=== PATIENT | female | born 1935 | race Caucasian/White ===

== ENCOUNTER 2021-03-16 03:00 | Inpatient (IN) | payer MEDICARE ==
[~2021-03-16] VITALS: Ht 162.6 cm; Wt 117.2 kg
[~2021-03-16 03:00] MED LIST: AMOX875 PO; ATEN25; ATEN25 PO; FAMO20 PO; LISI20 PO; LOSA25; Lisinopril2.5 MG; MAGCHL64ER; OMEPRAZOLE MAGN20 MG PO; OXYB5 PO; Omeprazole20 M1
[2021-03-16 03:21] LABS: BASOPHILS ABSOLUTE AUTO 0.03 K/mm3 (0.00-0.23); BASOPHILS PERCENT AUTO 0 % (0-2); EOSINOPHILS ABSOLUTE AUTO 0.15 K/mm3 (0.00-0.68); EOSINOPHILS PERCENT AUTO 2 % (0-6); Hematocrit 36.5 % (33.0-51.0); Hemoglobin 12.1 g/dL (11.5-16.0); IMMATURE GRAN ABSOLUTE AUTO 0.03 K/mm3 (0.00-0.10); IMMATURE GRAN PERCENT AUTO 0 % (0-1); LYMPHOCYTES ABSOLUTE AUTO 1.88 K/mm3 (0.84-5.20); LYMPHOCYTES PERCENT AUTO 27 % (21-46); MONOCYTES ABSOLUTE AUTO 0.56 K/mm3 (0.16-1.47); MONOCYTES PERCENT AUTO 8 % (4-13); Mean Corpuscular HGB Conc 33.2 g/dL (31.5-36.5); Mean Corpuscular Volume 91 fL (80-100); Mean Platelet Volume 8.9 fL (9.1-12.4); NEUTROPHILS ABSOLUTE AUTO 4.27 K/mm3 (1.96-9.15); NEUTROPHILS PERCENT AUTO 62 % (41-73); Platelet Count 280 K/mm3 (150-400); RDW Coefficient Variation 13.5 % (11.7-14.2); RDW Standard Deviation 44.8 fL (35.1-46.3); Red Blood Cell Count 4.03 M/mm3 (3.80-5.20); White Blood Cell Count 6.92 K/mm3 (4.00-11.30)
[2021-03-16 03:36] LABS: Prothrombin Time Results 10.5 Sec (9.7-11.5)
[2021-03-16 03:41] LABS: Albumin/Globulin Ratio 0.8 (0.8-1.8); Bilirubin, Total 0.4 mg/dL (0.1-1.0); Bun/Creatinine Ratio 19.6 (12.0-20.0); Calcium, Blood 9.6 mg/dL (8.5-10.1); Creatinine, Blood 1.02 mg/dL (0.40-1.00); Globulin, Blood 3.7 g/dL (2.2-4.0); Potassium, Blood 4.1 mmol/L (3.5-5.5); Total Protein, Blood 6.7 g/dL (6.4-8.2); Troponin I 0.38 ng/mL (0.000-0.040)
[2021-03-16 04:07] LABS: Influenza A, PCR NEGATIVE (NEGATIVE); Influenza B, PCR NEGATIVE (NEGATIVE); Resp Syncytial Virus, PCR NEGATIVE (NEGATIVE); SARS-Cov-2 (COVID-19) PCR, MMC NEGATIVE (NEGATIVE)
[2021-03-16 06:49] LABS: Source, Urine Catheter
[2021-03-16 06:57] LABS: Bilirubin, Urine Neg (Neg); Blood, Urine 2+ (Neg); Glucose Qualitative, Urine Neg (Neg); Ketones, Urine Neg (Neg); Leukocyte Esterase, Urine 3+ (Neg); Nitrite, Urine Pos (Neg); Protein, Urine 2+ (Neg); Specific Gravity, Urine 1.015 (1.003-1.022); Urobilinogen, Urine NORM (Normal)
--- NOTE | 2021-03-16 07:00 | NUR ---
PATIENT ARRIVED TO ICU FROM INSTALLMENT ACCOUNT CHECKER AT 0530, DOCTOR TASHI ARRIVING TO ROOM WITH PATIENT. STAT ECG DONE. VERBAL ORDER TO RESTART NITRO DRIP IF CHEST PAIN RETURNS. PATIENT DENYING CP ON ARRIVAL TO UNIT. FEMSTOP WITH GAUZE DRESSING TO RIGHT GROIN, CENTRAL LINE ALSO TO RIGHT GROIN, BRIGHT RED BLOOD OOZING FROM UNDER CENTRAL LINE DRESSING. DRESSING CHANGED AND UMESH DRESSING PLACED OVER SITE AND NEW CHG DRESSING PLACED OVER AREA. HOGAN CATH PLACED WITHOUT DIFFICULTY DRAINING HAZY YELLOW URINE UA SENT PER PROTOCOL. AT 0630 PATIENT VERBALIZED SHE WAS FEELING "UNCOMFORTABLE" WITH 8/10 TIGHTNESS AROUND CHEST AND UPPER GASTRIC AREA, NITRO DRIP STARTED SEE FLOW SHEET FOR TITRATION. FEMSTOP REMAINS IN PLACE WITH PRESSURE 95 NO OOZING SEEN AREA SOFT. RIGHT LEG LARGER THAN LEFT WITH DOPPLER PULSES NO CHANGE FROM ARRIVAL TO ICU.
[2021-03-16 07:15] LABS: Color, Urine Yellow (P-Yellow)
[2021-03-16 07:16] LABS: Appearance, Urine Hazy (Clear)
[2021-03-16 07:19] LABS: Hyaline Casts 0-2 /lpf (0-2)
[2021-03-16 07:22] LABS: Red Blood Cells, Urine 0-2 /hpf (0-2); White Blood Cells, Urine 50-100 /hpf (0-5)
[2021-03-16 07:23] LABS: Bacteria Many /hpf; Squamous Epithelial Cells Rare /hpf (Few)
[2021-03-16 07:53] LABS: BASOPHILS ABSOLUTE AUTO 0.03 K/mm3 (0.00-0.23); BASOPHILS PERCENT AUTO 0 % (0-2); EOSINOPHILS ABSOLUTE AUTO 0.06 K/mm3 (0.00-0.68); EOSINOPHILS PERCENT AUTO 1 % (0-6); Hematocrit 35.9 % (33.0-51.0); Hemoglobin 11.8 g/dL (11.5-16.0); IMMATURE GRAN ABSOLUTE AUTO 0.04 K/mm3 (0.00-0.10); IMMATURE GRAN PERCENT AUTO 1 % (0-1); LYMPHOCYTES ABSOLUTE AUTO 1.76 K/mm3 (0.84-5.20); LYMPHOCYTES PERCENT AUTO 21 % (21-46); MONOCYTES ABSOLUTE AUTO 0.47 K/mm3 (0.16-1.47); MONOCYTES PERCENT AUTO 6 % (4-13); Mean Corpuscular HGB 29.9 pg (26.0-34.0); Mean Corpuscular HGB Conc 32.9 g/dL (31.5-36.5); Mean Corpuscular Volume 91 fL (80-100); Mean Platelet Volume 9.2 fL (9.1-12.4); NEUTROPHILS ABSOLUTE AUTO 5.94 K/mm3 (1.96-9.15); NEUTROPHILS PERCENT AUTO 72 % (41-73); Platelet Count 301 K/mm3 (150-400); RDW Coefficient Variation 13.7 % (11.7-14.2); RDW Standard Deviation 45.1 fL (35.1-46.3); Red Blood Cell Count 3.94 M/mm3 (3.80-5.20)
[2021-03-16 07:59] LABS: Calcium, Blood 9.5 mg/dL (8.5-10.1); Potassium, Blood 4.5 mmol/L (3.5-5.5)
[2021-03-16 08:06] LABS: Troponin I 26.3 ng/mL (0.000-0.040)
--- NOTE | 2021-03-16 19:37 | NUR ---
SIGNIFICANT EVENTS: FEMSTOP REMAINED IN PLACE UNTIL APPROX 1530. AT THIS TIME DR. AKINS CAME TO BEDSIDE AND INJECTED LIDOCAINE W/EPI, REMOVED FEMSTOP. SITE STOPPED OOZING. PT NOW IS SITTING UP WITH NO FURTHER OOZING OR HEMATOMA AT SITE. AREA OF ECCYMOSIS IN ALEXYS AREA REMAINS. FEMORAL CENTRAL LINE REMOVED PER ORDER. NEURO: A&OX4. COMPLAINED OF PAIN AT RIGHT GROIN SITE TODAY RELATED TO PRESSURE FROM FEMSTOP. TREATED WITH PRN FENTANYL WHICH WAS EFFECTIVE. PT HAS HAD INTERMITTENT SHIVERS/CHILLS WHICH SHE STATES IS FROM NERVOUSNESS. PULM: 2L NC. LUNGS CLEAR. CARDIAC: A FIB 90S-100S. NITRO INFUSING TODAY FOR CHEST PAIN/PRESSURE, TITRATED TO 60MCG/MIN TODAY. SEE VITALS FOR BP TRENDS. PEDAL PULSES FOUND BY DOPPLER. GI/: HOGAN WITH CLOUDY UOP - DISCUSSED WITH DR. ELLIOTT. NO BM. PT HAD 2 EPISODES OF VOMITTING TODAY. DIET ORDERED THIS EVENING BUT PT DID NOT HAVE AN APPETITE.
--- NOTE | 2021-03-16 21:09 | NUR ---
PATIENT RESTING QUIETLY IN BED A&O X3, [place]. VERBALIZED PAIN IS "BETTER" YET VERBALIZED 10/10 PRESSURE TYPE PAIN WITH DEEP BREATH. PATIENT ASSISTED TO REPOSITION TO HER RIGHT SIDE, HYPOTENSIVE BP 86/50 MAP 65 NITRO DRIP TITRATED DOWN TO 55 MCG. AGGRASTAT STARTED AT 0.077 MCG/KG/MIN. RIGHT GROIN WITH DRESSING INTACT WITH SMALL AMT OF RED BLOOD CONTAINED IN DRESSING. LARGE BRUISING TO GROIN AND PUBIC AREA, BRUISING SOFT, NO HARD HEMATOMA FELT. DOPPLER PULSES TO BOTH FEET, RIGHT LEG LARGER THAN LEFT WHICH IS NOT NEW FOR PATIENT. DOCTOR AKINS GIVEN UPDATE AT 1945 TROP I TO BE DRAWN EARLY, AND TO TITRATE NITRO DRIP OFF AND START NITRO PASTE. DOCTOR AKINS NOTIFIED OF TROP I LEVEL OF 72.5 CONTINUE WITH PLAN TO DC NITRO DRIP AFTER NITRO PASTE STARTED. PATIENT NOW SLEEPING ON HER RIGHT SIDE, RIGHT GROIN WITH NO FURTHER OOZE SEEN AND AREA REMAINS SOFT.
--- NOTE | 2021-03-17 00:44 | NUR ---
PATIENT SLEEPING REPOSITIONING SELF IN BED FOR COMFORT. AWAKENS TO SLIGHT STIMULI. WHEN AWAKE CONTINUES TO C/O CHEST PRESSURE, NITRO DRIP OFF AND NITRO PASTE IN PLACE. RIGHT WRIST SITE SMALL BRUISING UNCHANGED FROM BEGINNING OF SHIFT. LEFT AC WITH LARGE BRUISE THAT ALSO REMAINS UNCHANGED. RIGHT GROIN SITE REMAINS SOFT WITH SMALL AMT OF OOZING CONTAINED IN DRESSING, AREA REMAINS SOFT WITH LARGE AMT OF BRUISING UNCHANGED.
[2021-03-17 05:19] LABS: BASOPHILS ABSOLUTE AUTO 0.02 K/mm3 (0.00-0.23); BASOPHILS PERCENT AUTO 0 % (0-2); EOSINOPHILS ABSOLUTE AUTO 0.01 K/mm3 (0.00-0.68); EOSINOPHILS PERCENT AUTO 0 % (0-6); Hematocrit 31.4 % (33.0-51.0); Hemoglobin 10.3 g/dL (11.5-16.0); IMMATURE GRAN ABSOLUTE AUTO 0.05 K/mm3 (0.00-0.10); IMMATURE GRAN PERCENT AUTO 1 % (0-1); LYMPHOCYTES ABSOLUTE AUTO 1.44 K/mm3 (0.84-5.20); LYMPHOCYTES PERCENT AUTO 13 % (21-46); MONOCYTES ABSOLUTE AUTO 1.24 K/mm3 (0.16-1.47); MONOCYTES PERCENT AUTO 12 % (4-13); Mean Corpuscular HGB 30.1 pg (26.0-34.0); Mean Corpuscular HGB Conc 32.8 g/dL (31.5-36.5); Mean Corpuscular Volume 92 fL (80-100); Mean Platelet Volume 9.1 fL (9.1-12.4); NEUTROPHILS ABSOLUTE AUTO 8.06 K/mm3 (1.96-9.15); NEUTROPHILS PERCENT AUTO 74 % (41-73); Platelet Count 255 K/mm3 (150-400); RDW Coefficient Variation 13.9 % (11.7-14.2); RDW Standard Deviation 46.1 fL (35.1-46.3); Red Blood Cell Count 3.42 M/mm3 (3.80-5.20); White Blood Cell Count 10.82 K/mm3 (4.00-11.30)
[2021-03-17 05:31] LABS: Anion Gap 6 mmol/L (6-16); Blood Urea Nitrogen 17 mg/dL (8-24); Bun/Creatinine Ratio 20.6 (12.0-20.0); CO2, Blood 25 mmol/L (21-32); Calcium, Blood 9.4 mg/dL (8.5-10.1); Chloride, Blood 108 mmol/L (98-108); Creatinine, Blood 0.83 mg/dL (0.40-1.00); Glomerular Filtration Rate >60 (60-); Glucose, Blood 124 mg/dL (70-99); Potassium, Blood 4.3 mmol/L (3.5-5.5); Sodium, Blood 139 mmol/L (136-145)
--- NOTE | 2021-03-17 07:00 | NUR ---
SUMMARY PATIENT HAVING INCREASED PAIN TO MID TO LEFT CHEST NIGHT PROGRESSED HAVING RELIEF OF PAIN WITH FENTANYL IV, SEE EMAR. AM EKG AND LABS COMPLETED AND DOCTOR TASHI NOTIFIED OF INCREASED PAIN AND GIVEN UPDATE. AGGRASTAT STOPPED AND HEPARIN DRIP PER PHARMACY ORDERED. NITRO PASTE REMOVED AND NITRO DRIP STARTED AT 20 MCG. RIGHT GROIN SITE REMAINS SOFT BRUISING HAS BEEN UNCHANGED T/O NIGHT, SMALL AMT OF OOZING SEEN CONTAINED IN NEW DRESSING. RIGHT WRIST SITE REMAINS SOFT NO CHANGES TO BRUISING.
[2021-03-17 07:39] LABS: International Normalized Ratio 1.07; Prothrombin Time Results 11.2 Sec (9.7-11.5)
--- NOTE | 2021-03-17 08:00 | NUR ---
ASSUMED CARE REPORT FROM ABDULAZIZ CAMPBELL AT 0700. PT RESTING IN BED. A&OX 3. PT C/O LEFT SIDED CHEST PAIN, STATES PAIN 10/10, ACHING, PRESSURE. PT REPORTS NO RELIEF FROM FENTANYL OR NITRO. APPEARS TO BE SLEEPING WHEN UNDISTURBED. NITRO GTT FOR CP, 30 MCG/HR. HEPARIN STARTED, AGGRASTAT ON STANDBY. AFIB, RATE 100-110. BP STABLE. LUNGS CLEAR, 2L VIA NC. PT REPORTS INCREASED PAIN c INSPIRATION. RIGHT GROIN ACCESS SITE SOFT, NON TENDER. ECCHYMOSIS NOTED, RIGHT RADIAL WNL, DRESSING C/D/I. HOGAN PATENT, DRAINING CLEAR YELLOW URINE TO GRAVITY. 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 WILL CONTINUE TO MONITOR.
--- NOTE | 2021-03-17 14:28 | NUR ---
RETURN TO ICU PT ARRIVES TO ICU FROM FILENET DEVELOPER AT 1415. 2 STENTS PLACED TO LAD, 2 COILS. 2 TR BANDS TO RIGHT RADIAL. 20 ML IN EACH. HAND COOL, GOOD O2 WAVE FORM TO RIGHT HAND. ARM BOARD PLACED. NO HEMATOMA NOTED. AGGRASTAT STARTED BY FILENET DEVELOPER RN AT 0.141 MCG/KG/MIN. NITRO GTT INFUSING AT 5 MCG/MIN. HEPARIN ON STANDBY. LAST ACT 125, PLAN TO START TO DEFLATE IN 2 HOURS. PT LETHARGIC, WAKES c VERBAL STIMULI, RETURNS TO SLEEP QUICKLY. AIRWAY PATENT. LUNGS CLEAR. 2L VIA NC. EKG DONE, AFIB, RATE 100. BP STABLE. WILL CONTINUE TO MONITOR.
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
--- NOTE | 2021-03-17 21:39 | NUR ---
DOCTOR TASHI GIVEN UPDATE ON PATIENT, PLAN TO START ISOSORBIDE TONIGHT AND TO TITRATE OFF NITRO DRIP. IF CHEST PAIN RETURNS AFTER NITRO DRIP OFF START NITRO PASTE 1 INCH Q8HR. PLAN TO HAVE PATIENT UP IN CHAIR TOMORROW
--- NOTE | 2021-03-17 22:02 | NUR ---
PATIENT INTUBATED AWAKE OCCASIONALLY SHACKING HEAD BACK ON FORTH, WHEN ASKED IF HE WAS ANXIOUS AND WANTING HELP SLEEPING PATIENT NODDING YES, PROPOFOL RESTARTED AT [address]. [address] WITH VENT AC PC RATE 28 IP 14 PEEP 5 FIO2 40% SUCTIONING THICK SHANE PLUGS VIA ETT. CLEAR ORAL SECRETIONS. DOBUTAMINE DRIP 2.5, AND AMIODARONE 0.5, SODIUM BICARB DRIP 100 CC/HR, HEPARIN DRIP 15 UNITS PER PHARMACY. OG IN PLACE WITH TUBE FEEDING AT GOAL RATE. RECTAL TUBE IN PLACE DRAINING BLACK LIQUID STOOL.
--- NOTE | 2021-03-18 01:46 | NUR ---
PATIENT RESTLESS, AND PULLING OFF HER GOWN AND BLANKETS. HEART RATE UP TO 130'S. WHEN ASKED WHAT SHE WAS TRYING TO DO SHE RESPONDED "I DON'T KNOW" PATIENT REMINDED THAT SHE IS IN THE HOSPITAL. PATIENT RUBBING UPPER ABD AND LEFT CHEST AREA, AND MOANING. NITRO DRIP WAS TITRATED OFF PER ORDER AT 0113, NITRO PASTE STARTED.
--- NOTE | 2021-03-18 02:39 | NUR ---
PATIENT CONTINUES TO HAVE HEART RATE 120-130 AFIB. PATIENT RELAXED AND RESTING COMFORTABLY VERBALIZED PAIN TO LEFT BREAST AREA IS "IRRITATING" BUT THAT SHE IS FEELING BETTER. PATIENT REMEMBERS FEELING CONFUSED AND RESTLESS EARLIER TONIGHT. LOPRESSOR IV GIVEN WITH HEART RATE DOWN TO 110'S AFTER LOPRESSOR.
[2021-03-18 06:43] LABS: BASOPHILS ABSOLUTE AUTO 0.02 K/mm3 (0.00-0.23); BASOPHILS PERCENT AUTO 0 % (0-2); EOSINOPHILS ABSOLUTE AUTO 0.02 K/mm3 (0.00-0.68); EOSINOPHILS PERCENT AUTO 0 % (0-6); Hematocrit 28.2 % (33.0-51.0); Hemoglobin 9.1 g/dL (11.5-16.0); IMMATURE GRAN ABSOLUTE AUTO 0.06 K/mm3 (0.00-0.10); IMMATURE GRAN PERCENT AUTO 1 % (0-1); LYMPHOCYTES ABSOLUTE AUTO 1.65 K/mm3 (0.84-5.20); LYMPHOCYTES PERCENT AUTO 15 % (21-46); MONOCYTES ABSOLUTE AUTO 1.32 K/mm3 (0.16-1.47); MONOCYTES PERCENT AUTO 12 % (4-13); Mean Corpuscular HGB 30.1 pg (26.0-34.0); Mean Corpuscular HGB Conc 32.3 g/dL (31.5-36.5); Mean Corpuscular Volume 93 fL (80-100); NEUTROPHILS ABSOLUTE AUTO 8.12 K/mm3 (1.96-9.15); NEUTROPHILS PERCENT AUTO 73 % (41-73); Platelet Count 254 K/mm3 (150-400); RDW Coefficient Variation 13.9 % (11.7-14.2); Red Blood Cell Count 3.02 M/mm3 (3.80-5.20); White Blood Cell Count 11.19 K/mm3 (4.00-11.30)
[2021-03-18 07:00] LABS: Calcium, Blood 9.3 mg/dL (8.5-10.1); Creatinine, Blood 0.9 mg/dL (0.40-1.00); Potassium, Blood 4.3 mmol/L (3.5-5.5)
--- NOTE | 2021-03-18 07:23 | NUR ---
SUMMARY PATIENT CONTINUES TO C/O CHEST PRESSURE TO LEFT SIDE OF CHEST MEDICATED WITH FENTANYL NEEDED FOR PAIN, PATIENT LESS CONFUSED WITH FENTANYL THAN WITH OXYCONTIN PO. RIGHT GROIN SITE REMAINS SOFT WITH NO CHANGES TO BRUISING. RIGHT LEG CONTINUES TO BE LARGER THAN LEFT WHICH IS NORMAL FOR PATIENT, DOPPLER PULSES ONLY. RIGHT WRIST SITE SOFT WITH NO SWELLING NO CHANGES TO BRUISING, NO OOZING SEEN. WHITE ARM BOARD IN PLACE TO HELP PATIENT REMEMBER TO NOT USE HER RIGHT WRIST. PATIENT CONTINUES TO BE IN AFIB WITH HR UP TO 120'S WHEN AWAKE. MEDICATED ONCE WITH LOPRESSOR IV DUE TO HR UP TO 150'S. PATIENT JINNY WELL.
--- NOTE | 2021-03-18 07:45 | NUR ---
DR. AKINS IN TO EVALUATE PT. PT IS A&0X4. REPORTS 9/10 LEFT CHEST PAIN AND NAUSEA. PT STATES THAT THE PAIN HURTS WORSE WITH TAKING A DEEP BREATH. ECG SHOWS AFIB WITH RATE 110-130'S. NITRO PASTE DC'D AND NITRO DRIP INITIATED @ 10 MCG/MIN PER DR. AKINS VERBAL ORDER. TROP 20.9-RESULTS TO DR. AKINS. LUNGS DIMINISHED IN THE BASES. NO NOTED SOB OR COUGH AT THIS TIME. SATS>90% ON 2 LITERS NASAL CANULA. PT NPO EXCEPT FOR SIPS OF WATER DUE TO NAUSEA. HOGAN WITH SMALL AMOUNT OF DARK, YELLOW URINE TO BSD. RIGHT LEG LYMPHEDEMA CONTINUES-THIS IS PT BASES LINE. SCATTERED ECCHYMOSIS NOTED THROUGH OUT-ESPECIALLY TO RIGHT AXILLAE, RIGHT ARM, AND RIGHT GROIN. DP/PT PULSES PER DOPPLER.
--- NOTE | 2021-03-18 08:00 | NUR ---
PT CONTINUES TO REPORT 9/10 LEFT CHEST PAIN. MED WITH FENTANYL 25 MCG IVP-SEE EMAR. NAUSEA CONTINUES WELL-MED WITH ZOFRAN 4 MG IVP-SEE EMAR. AGGRASTAT DISCONTINUED.
--- NOTE | 2021-03-18 08:30 | NUR ---
PT APPEARS TO BE SLEEPING WHEN NOT DISTURBED. SBP TRENDING 90-110'S WITH NITRO DRIP @ 10 MG/MIN. HR CONTINUES 110'S AFIB.
--- NOTE | 2021-03-18 10:00 | NUR ---
HR CONTINUES 110-130'S AFIB. MAP TRENDING 70'S ON NITRO DRIP @ 10 MCG/MIN. PT REPORTING 11/21 LEFT CHEST PAIN-MED WITH FENTANYL 25 MCG IVP-SEE EMAR. IN TO SEE PT BRIEFLY. MD AWARE OF INCREASED HR AND CONTINUES CHEST PAIN. MD SPOKE WITH PT FAMILY AND UPDATED THEM TO THE PLAN OF CARE. PT IS NOT A SURGICAL CANDIDATE.
--- NOTE | 2021-03-18 10:30 | NUR ---
PT TEARFUL. PT STATES "WHY AM I STILL HURTING SO BAD?" PT REPORTS 11/21 LEFT CHEST PAIN. MED WITH FENTANYL 25 MCG IVP-SEE EMAR.
--- NOTE | 2021-03-18 12:00 | NUR ---
PT SOBBING. REPORTS 10/10 LEFT CHEST PAIN. PT VERBALIZED THAT SHE WISHES TO BE DNR. PT REQUESTS THAT HER SISTER BE CONTACTED AND VERBALIZED CONCERN FOR HER "LITTLE DOG." PALLIATIVE CARE UPDATED. HR TRENDING 140'S AFIB. LUNGS WITH CRACKLE HALF WAY UP LUNG SEARS. RR 36 AND PT SOB. SATS>90% ON 2 LITERS NASAL CANULA.
--- NOTE | 2021-03-18 12:15 | NUR ---
DR. AKINS HERE TO SEE PT. HR CONTINUES 140'S AFIB. PT STILL MOANING AND CRYING OUT. PT MEDICATED WITH FENTANYL 50 MCG IVP X 1-SEE EMAR. METOPROLOL 5 MG IVP GIVEN OVER [address] AKINS FOR HR AND LASIX 40 MG IVP GIVEN FOR FLUID OVERLOAD/CRACKLES-ALSO GIVEN OVER 5 MINUTES. DNR BAND PLACED TO RIGHT WRIST. DR. AKINS UPDATED PT FAMILY AND SUGGESTED THAT THEY COME IN TO SEE PT. PALLIATIVE CARE TO DISCUSS POSSIBLE COMFORT CARE AT THAT TIME.
--- NOTE | 2021-03-18 12:41 | NUR ---
PT HAD 5OCC EMESIS. MED WITH ZOFRAN 4 MG IVP.
--- NOTE | 2021-03-18 13:35 | NUR ---
PT CONTINUES TO REPORTS SEVERE, LEFT CHEST PAIN. PT HAD 50 CC EMESIS. MED WITH DILAUDID 1 MG IVP FOR PAIN AND PHENERGAN 12.5 MG IVP FOR NAUSEA. PT HAS BEEN VISITING WITH HER FAMILY AND HAVING APPROPRIATE CONVERSATION.
--- NOTE | 2021-03-18 13:50 | NUR ---
PT SON JEREMY IS PT POA-UPDATED TP PT DECLINE IN STATUS. AFTER A FAMILY DICUSSION, FAMILY REQUESTS THAT PT BE MADE COMFORT CARE. DR. CHANG CONTACTED BY RN. SANDRA HENDERSON FROM PALLIATIVE CARE AWARE.
--- NOTE | 2021-03-18 14:52 | NUR ---
Spiritual CAre visit and referral. Pt. was alerty and in significant distress. Pt. suffered from both pain and nausea. Pt. disturbed about diagnosis. Listened empathetically. Family members soon arrived. Pt. continued to verbalize both shock and unbelief of her condition. Provided a claming presence. Facilitated a life review. Prayed with Pt. and family. Family members present used phones to allow Pt. to speak with and hear from other family. I was asked to stay. Nurses treated pt. for both pain and nausea. The pt. quickly relaxed and went to sleep. Another shift of family came to see Pt. Rapport was established. As pt. rested I read scripture. I gave an update to family that was waiting in ICU lounge. I made myself available if any changes happen. I will monitor.
--- NOTE | 2021-03-18 15:54 | NUR ---
PT AWAKENED DURING POSITION CHANGE AND BEGAN GRIMACING AND CRYING OUT. HR UP TO 170'S-FENTANYL PATCH PLACED AND PT MED WITH DILAUDID 1 MG IVP. MAINTAINING SATS>90% ON 2 LITERS NASAL CANULA. PT SURROUNDED BY FAMILY MEMEBERS. COMFORT CART PROVIDED.
--- NOTE | 2021-03-18 15:58 | NUR ---
ct scan tech discussed in great detail with both sons who are POA. Pt Prognosis very poor, hypotensive, profound nausea, chest wall pain. Physician asked family to come in as soon as possible Pt may be eminent. hospitalist reviewed pt prognosis with family. pt placed on comfort care. Review of symptom management with nursing and family. Chaplian at bedside with family.
--- NOTE | 2021-03-18 18:00 | NUR ---
PT CURRENTLY RESTING QUIETLY WITHOUT NOTED DISTRESS. FAMILY REMAINS AT BEDSIDE. PT AWAKENS WITH POSITION CHANGES AND IMMEDIATELY STARTS TO GRIMACE AND MOAN. HR UP TO 170'S WITH STIMULI-MED WITH DILAUDID 1 MG IVP-SEE EMAR.
--- NOTE | 2021-03-18 18:25 | NUR ---
Spiritual Care follow up. Pt. is in comfort care. Spent significant time with familiy who came to visit. Differing responses from different family members. Some subtle family system distress observed. Provided calming influence. Offered emtional support. Family displayed evidence of both grief and reduced stress. Prayed over pt. with family. Family verbalized gratitude for holding anguiano with them. I will monitor.
--- NOTE | 2021-03-18 18:36 | NUR ---
PT FAMILY SUMMONED RN TO ROOM. FAMILY VERBALIZING CONCERN THAT PT GRIMACING AND LABORING TO BREATHE. ALSO, HR 160'S-PT MED WITH DILAUDID 1 MG IVP-SEE EMAR. WILL REPORT TO ONCOMING SHIFT.
--- NOTE | 2021-03-18 19:33 | NUR ---
SHIFT ASSESSMENT ASSUMED CARE OF PT @ 1900. PT APPEARS TO BE RESTING COMFORTABLY AT THIS TIME. FAMILY AT BEDSIDE, INFORMED TO USE CALL LIGHT IF THEY FEEL PT NEEDS ANYTHING. WILL CONTINUE TO MONITOR PTS COMFORT CLOSELY.
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
--- NOTE | 2021-03-19 01:33 | NUR ---
UPDATE PT BECOMING MORE TACHYCARDIC. SECRETIONS INCREASING. MORE FREQUENT SUCTIONING AT THIS TIME, BLOODY SECRETIONS. ANSWERED QUESTIONS/ CONCERNS OF FAMILY AT BEDSIDE. WILL CONTINUE TO MONITOR CLOSELY.
--- NOTE | 2021-03-19 05:58 | NUR ---
PT BECOMING MORE TACHYCARDIC. MEDICATED PER MAR FOR PT COMFORT. FAMILY REMAINS AT BEDSIDE T/O THE NIGHT. AWAITING PTS SONS ARRIVAL THIS AM. FLIGHT LANDS IN [place] AROUND 0800.
--- NOTE | 2021-03-19 05:59 | NUR ---
SUCTIONED AND MEDICATED c PRN PAIN MEDS.
--- NOTE | 2021-03-19 07:39 | NUR ---
PT LABORING TO BREATH. RESPIRATIONS AUDIBLY MOIST. LUNGS WITH CRACKLES THROUGH OUT. AIR HUNGER NOTED. MED WITH ATROPINE GTTS SL FOR SECRETIONS AND APPLIED SCOPOLAMINE PATCH. DILAUDID 1 MG IVP GIVEN FOR PAIN. HR TRENDING 160-210'S. PT FAMILY AT BEDSIDE-UPDATED TO CURRENT STATUS AND PLAN OF CARE.
--- NOTE | 2021-03-19 07:50 | NUR ---
PT CONTINUES TO HAVE AIR HUNGER. RESPIRATIONS STILL AUDIBLY MOIST. PT HAD SMALL EMESIS. ORAL CARE AND YANKEUR SUCTION PERFORMED. PT MED WITH ZOFRAN 4 MG IVP FOR N/V. MED WITH FENTANYL 50 MCG IVP FOR CONTINUED AIR HUNGER.
--- NOTE | 2021-03-19 08:01 | NUR ---
HR CONTINUES 180-200'S. PT CONTINUES WITH AIR HUNGER. DR. SUBRAMANIAN HERE TO SEE PT. ATIVAN 2 MG IVP GIVEN PER DR. SUBRAMANIAN ORDER FOR AIR HUNGER.
--- NOTE | 2021-03-19 08:34 | NUR ---
PT CONTINUES TO LABOR TO BREATH AND RESPIRATIONS REMAIN AUDIBLY MOIST-MED WITH ATROPINE DROPS FOR SECRETIONS AND DILAUDID 1 MG IVP FOR AIR HUNGER/SOB.
--- NOTE | 2021-03-19 10:31 | NUR ---
PT -FAMILY AT BEDSIDE. BELONGINGS SENT HOME WITH PT SON MARIELOS.
--- NOTE | 2021-03-19 11:56 | NUR ---
Pt. resting with comfort care. Met with family in the morning 0845. At family request prayed for pt. and the family. Connected with floor nurse. Return in AM after Pt. exired.
== END 2021-03-19 11:27 | DRG 246 ==
LOC: ER 03:00 → ICUW 03:11 → ICUE 03:11
PROVIDERS: Emergency Medicine; ADMIT Internal Medicine Cardiovascular Disease
PROC: 027034Z Dilation of Coronary Artery, One Artery with Drug-eluting Intraluminal Device, Percutaneous Approach (ICD-10-PCS; principal; 2021-03-16)
PROC: 4A023N7 Measurement of Cardiac Sampling and Pressure, Left Heart, Percutaneous Approach (ICD-10-PCS; 2021-03-16)
PROC: B2111ZZ Fluoroscopy of Multiple Coronary Arteries using Low Osmolar Contrast (ICD-10-PCS; 2021-03-16)
PROC: 027035Z Dilation of Coronary Artery, One Artery with Two Drug-eluting Intraluminal Devices, Percutaneous Approach (ICD-10-PCS; 2021-03-17)
PROC: 4A023N7 Measurement of Cardiac Sampling and Pressure, Left Heart, Percutaneous Approach (ICD-10-PCS; 2021-03-17)
PROC: B2111ZZ Fluoroscopy of Multiple Coronary Arteries using Low Osmolar Contrast (ICD-10-PCS; 2021-03-17)
PROC: 03LY3DZ Occlusion of Upper Artery with Intraluminal Device, Percutaneous Approach (ICD-10-PCS; 2021-03-17)
DX: I21.09 ST elevation (STEMI) myocardial infarction involving other coronary artery of anterior wall (principal); I50.21 Acute systolic (congestive) heart failure; N17.9 Acute kidney failure, unspecified; N39.0 Urinary tract infection, site not specified; Z68.41 Body mass index [BMI] 40.0-44.9, adult; Z66 Do not resuscitate; Z51.5 Encounter for palliative care; I97.51 Accidental puncture and laceration of a circulatory system organ or structure during a circulatory system procedure; Z20.822 Contact with and (suspected) exposure to COVID-19; R57.0 Cardiogenic shock; I48.91 Unspecified atrial fibrillation; I11.0 Hypertensive heart disease with heart failure; N32.81 Overactive bladder; I89.0 Lymphedema, not elsewhere classified; I25.10 Atherosclerotic heart disease of native coronary artery without angina pectoris; D64.9 Anemia, unspecified; E66.9 Obesity, unspecified; K21.9 Gastro-esophageal reflux disease without esophagitis; Z88.5 Allergy status to narcotic agent; Z79.899 Other long term (current) drug therapy; Z85.3 Personal history of malignant neoplasm of breast; Z90.11 Acquired absence of right breast and nipple; Y65.8 Other specified misadventures during surgical and medical care; Y71.1 Therapeutic (nonsurgical) and rehabilitative cardiovascular devices associated with adverse incidents
CPT/HCPCS: 0241U; 36415; 36556; 36569; 37244; 51702; 71045; 76937; 80048; 80053; 81001; 83735; 84484; 85025; 85347; 85610; 85730; 87086; 92941; 93005; 93010; 93306; 93308; 93454; 96374; 96375; 99152; 99153; 99285-25; A9270; C1725; C1751; C1760; C1769; C1874; C1887; C1894; C9600; J0282; J1170; J1644; J1940; J2060; J2250; J2370; J2405; J2550; J2720; J3010; J3246; J7030; J7040; J7050; Q9967